=== PATIENT | male | born 1990 | race Caucasian/White ===

== ENCOUNTER 2020-07-07 22:21 | Emergency (ER) | payer MEDICAID ==
[2020-07-07 22:33] VITALS: BP 129/85
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
--- NOTE | 2020-07-08 00:33 | ED Physician Documentation ---
PD HPI SKIN - Stated complaint Stated Complaint: LT HAND LAC/ FC - Chief complaint Chief Complaint: Laceration PD PAST MEDICAL HISTORY - Past Medical History Past Medical History: No - Past Surgical History Past Surgical History: No - Present Medications Home Medications: Ambulatory Orders Medication Instructions Recorded Confirmed No Known Home Medications 07/08/20 07/08/20 - Allergies Allergies/Adverse Reactions: Allergies Allergy/AdvReac Type Severity Reaction Status Date / Time Penicillins Allergy Anaphylaxis Verified 07/07/20 22:28 - Social History Does the pt smoke?: Yes Smoking Status: Current every day smoker Does the pt drink ETOH?: No Does the pt have substance abuse?: Yes Substance Use and Type: Marijuana - Immunizations Immunizations are current?: Yes Results - Vitals Vitals: Vital Signs - 24 hr 07/07/20 22:28 Temperature 36.6 C Heart Rate 56 L Respiratory 18 Rate Blood Pressure 129/85 H O2 Saturation 99 Oxygen O2 Source Room air
[2020-07-08] MEDS ORDERED: BUFFERED LIDOCAINE 10 ML SYRINGE IU ONE (01:00)
[2020-07-08] MEDS ORDERED: BACITRACIN ZINC OINT 1 PACKET TOP STA (02:44)
--- NOTE | 2020-07-08 10:46 | XRAY Report ---
PROCEDURE: Hand 3 View LT INDICATIONS: injury, pain, tenderness TECHNIQUE: 3 views of the hand(s) acquired. COMPARISON: None FINDINGS: Bones: No fractures or dislocations. No suspicious bony lesions. Soft tissues: No suspicious soft tissue calcifications. No radiopaque foreign bodies are seen. IMPRESSION: No opaque foreign bodies are seen. No focal bony abnormality is seen. If there is strong clinical concern for developing osteomyelitis in this patient with this given hist ory, then please consider a dedicated MRI (without and with contrast) for further evaluation (assumin g that there is no contraindication). Note: No significant discrepancy from the preliminary report. Reviewed by: Augusto Aguilar MD on 07/08/2020 9:45 AM [facility] Approved by: Augusto Aguilar MD on 07/08/2020 9:45 AM [facility] Station ID: [id number]
== END 2020-07-08 03:10 | disposition home or self-care (01) ==
LOC: ED 22:21
DX: S61.213A Laceration without foreign body of left middle finger without damage to nail, initial encounter (principal); S80.211A Abrasion, right knee, initial encounter; X99.1XXA Assault by knife, initial encounter; F17.200 Nicotine dependence, unspecified, uncomplicated
CPT/HCPCS: 12001; 73130; 99282; 99283; A9270

== ENCOUNTER 2021-02-20 02:01 | Outpatient (CLI) | payer MEDICAID | END 2021-02-20 02:02 | disposition critical access hospital (66) | LOC: EMS 02:01 | DX: R51.9 Headache, unspecified (principal) | CPT/HCPCS: A0425; A0429; A0999 ==

== ENCOUNTER 2021-02-20 02:21 | Emergency (ER) | payer MEDICAID ==
[2021-02-20] MEDS: TETANUS/DIPHTHERIA/PERTUSSIS 0.5 ML SYRINGE IM ONE (04:17)
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
[2021-02-20] MEDS: BUFFERED LIDOCAINE 10 ML SYRINGE SUBQ STA (07:37)
[2021-02-20 07:47] VITALS: BP 124/81
== END 2021-02-20 07:47 | disposition home or self-care (01) ==
LOC: EDUNIT# → ED 02:21
DX: S01.01XA Laceration without foreign body of scalp, initial encounter (principal); Y00.XXXA Assault by blunt object, initial encounter; F17.200 Nicotine dependence, unspecified, uncomplicated; F11.10 Opioid abuse, uncomplicated; Z23 Encounter for immunization
CPT/HCPCS: 12001; 90471; 99282; 99284